=== PATIENT | female | born 1950 | race Asian ===

== ENCOUNTER 2019-11-01 03:03 | Emergency (ER) | payer MEDICARE, OTHER ==
[~2019-11-01] VITALS: Ht 167.6 cm; Wt 72.6 kg
[2019-11-01 03:11] VITALS: BP 150/92
--- NOTE | 2019-11-01 03:46 | Emergency Room Report ---
History of Present Illness General Chief Complaint: Pain Present Illness HPI 69-year-old female presented from her correction facility due to right leg pain. She has had chronic right leg pain since a fall 3 years ago. She normally uses Tylenol and a lidocaine patch nightly. Tonight at her correction facility they would not provide her lidocaine patch. Apparently she started yelling and became mildly agitated police were called and did come to the correction facility. And she was transported to the ER by EMS. On arrival patient only complains of chronic right lower extremity pain and is requesting a lidocaine patch. Patient is COVID positive. Allergies: Coded Allergies: No Known Allergies (Unverified , 11/01/19) COVID-19 Screening Contact w/high risk pt: Yes Recent Travel to affected area: No Experienced COVID-19 symptoms?: Yes COVID-19 symptoms experienced: Shortness of Breath COVID-19 Testing performed COLL[employer] JUMPBASTING: Yes COVID-19 Screening: Negative COVID-19 COVID-19 Testing Source: [facility] Patient History Reviewed Nursing Documentation: PMH: Agreed; PSxH: Agreed Nursing Documentation-PMH Hx Hypertension: Yes Review of Systems All Other Systems: negative except mentioned in HPI Physical Exam Vital Signs Date Time Temp Pulse Resp B/P (MAP) Pulse Ox O2 Delivery O2 Flow Rate FiO2 11/01/19 03:06 99.0 86 16 150/92 (111) 95 Room Air Sp02 EP Interpretation: reviewed, normal General Appearance: well appearing, no apparent distress Head: normocephalic, atraumatic Eyes: bilateral eye PERRL, bilateral eye EOMI ENT: hearing grossly normal, moist mucus membranes Neck: full range of motion, supple Respiratory: lungs clear, normal breath sounds, no rhonchi, no respiratory distress, no retraction, no wheezing Cardiovascular #1: normal peripheral pulses, regular rate, rhythm, no murmur Gastrointestinal: non tender, soft, non-distended, no guarding Musculoskeletal: normal inspection, other - No deformity, 2+ pulses Neurologic: alert, oriented x3, no focal defects Skin: normal color, warm/dry Medical Decision Making Diagnostic Impression: Primary Impression: Right leg pain ER Course Patient presents for right lower extremity pain. She has a history of chronic right lower extremity pain. She presented requesting a lidocaine patch. I have a low suspicion for emergent medical process at this time. Low suspicion for infectious process, DVT or other serious etiology. Patient was provided a lidocaine patch. She is otherwise stable for discharge back to her correction facility. Last Vital Signs Date Time Temp Pulse Resp B/P (MAP) Pulse Ox O2 Delivery O2 Flow Rate FiO2 11/01/19 03:11 99.0 86 16 150/92 95 Room Air Disposition: SNF Condition: Improved Scripts Lidocaine Patch* (Lidoderm Patch*) 1 Each Adh..patch 1 PATCH TOPIC DAILY, #7 PATCH 0 Refills Patch(es) may remain in place for up to 12 hours in any 24-hour period. Prov: Jm Bryant M.D. 11/01/19 Referrals: NON PHYSICIAN (PCP) Jm Bryant M.D. Nov 01, 2019 03:46
[2019-11-01] MEDS ORDERED: LIDODERM700 M1 TOPIC (03:55)
== END 2019-11-01 04:30 ==
LOC: EDBD 03:03 → EMR 03:15
DX: M79.604 Pain in right leg (principal); I10 Essential (primary) hypertension
CPT/HCPCS: 99282